=== PATIENT | male | born 1985 | race Caucasian/White ===

== ENCOUNTER 2023-03-10 14:38 | Emergency (ER) | payer MEDICAID ==
[~2023-03-10] VITALS: Ht 162.6 cm; Wt 82.0 kg
[2023-03-10] MEDS ORDERED: IBUP-2029 MT (18:56)
[2023-03-10] MEDS ORDERED: KETOROLAC 30MG/ML VIAL IM ONE (19:00)
[2023-03-10 19:28] VITALS: BP 123/72
== END 2023-03-10 19:29 | disposition home or self-care (01) ==
LOC: ER 14:38
DX: S02.31XA Fracture of orbital floor, right side, initial encounter for closed fracture (principal); S50.311A Abrasion of right elbow, initial encounter; H11.31 Conjunctival hemorrhage, right eye; M79.605 Pain in left leg; R11.0 Nausea; Y04.2XXA Assault by strike against or bumped into by another person, initial encounter; Y93.01 Activity, walking, marching and hiking; Y92.89 Other specified places as the place of occurrence of the external cause; Y99.8 Other external cause status
CPT/HCPCS: 70450; 70486; 71101; 73030; 73552; 96372; 99285; J1885; Z7610